=== PATIENT | female | born 1990 | race African-American/Black ===

== ENCOUNTER 2021-06-15 11:30 | Day surgery (SDC) | payer OTHER ==
[2021-06-08 12:55] LABS: ALBUMIN 4.1 G/DL (3.4-5.0); ALBUMIN/GLOBULIN RATIO 0.8 (1.1-1.5); ALKALINE PHOSPHATASE 43 IU/L (46-116); BLOOD UREA NITROGEN 13 MG/DL (7-18); BUN/CREATININE RATIO 17.6 (6.6-38.0); CALCIUM 9.5 MG/DL (8.5-10.1); CHLORIDE 103 MMOL/L (99-107); CREATININE 0.74 MG/DL (0.40-0.90); PRE OP ALT 13 U/L (30-65); PRE OP ANION GAP 13 (8-16); PRE OP AST 24 U/L (10-37); PRE OP BILIRUB, TOTAL 0.2 MG/DL (0.0-1.0); PRE OP GLUCOSE 87 MG/DL (70-104); PRE OP POTASSIUM 3.9 MMOL/L (3.4-5.1); PRE OP SODIUM 139 MMOL/L (135-145); TOTAL CARBON DIOXIDE 22.6 MMOL/L (24-32); TOTAL PROTEIN 9.4 G/DL (6.4-8.2); eGFR > 90 ML/MIN
[2021-06-08 13:02] LABS: HCG SERUM QL NEGATIVE
[2021-06-08 14:36] LABS: BASOPHILS % (AUTO) 0.6 % (0-1); EOSINOPHILS % (AUTO) 0.2 % (0-6); LYMPHOCYTES # (AUTO) 1.2 X10'3 (1.1-4.8); LYMPHOCYTES % (AUTO) 26.8 % (21-51); MEAN CORPUSCULAR HEMOGLOBIN 22.5 PG (27.0-31.0); MEAN CORPUSCULAR HGB CONC 31.4 g/dL (33.0-36.5); MEAN CORPUSCULAR VOLUME 71.8 FL (78-98); MEAN PLATELET VOLUME 8.4 FL (7.4-10.4); MONOCYTES # (AUTO) 0.3 X10'3 (0-0.9); MONOCYTES % (AUTO) 6.6 % (2-12); NEUTROPHILS # (AUTO) 2.8 X10'3 (1.8-7.7); NEUTROPHILS % (AUTO) 65.8 % (42-75); PRE OP HEMATOCRIT 32.4 % (35.0-45.0); PRE OP PLATELET COUNT 360 X10'3 (140-440); RED BLOOD COUNT 4.51 X10'6 (4.20-5.60); RED CELL DISTRIBUTION WIDTH 19.4 % (11.5-14.5)
[2021-06-08 14:41] LABS: PRE OP HEMOGLOBIN 10.2 g/dL (12.0-16.0)
[2021-06-08 15:25] LABS: ANISOCYTOSIS 2+; LARGE PLATELETS FEW; MICROCYTOSIS 1+; PLATELET ESTIMATE NORMAL
[2021-06-08 15:26] LABS: ELLIPTOCYTES FEW
[~2021-06-15] VITALS: Ht 160 cm; Wt 42.0 kg
[2021-06-15] VITALS (9 sets, daily range): BP systolic 105–125; BP diastolic 61–77
[~2021-06-15 11:30] MED LIST: FERR236T3 PO; [UNRECOGNIZED DRUG - CODE] PO; famotidine 20mg tablet PO ONE; ringers solution, lacted 1,000 ML IV SCH
[2021-06-15] MEDS ORDERED: proCHLORperazine 10 MG/2 ml inj IV PRN (13:05)
[2021-06-15] MEDS ORDERED: meperidine/PF 25mg/ml syringe IV PRN ×3 (13:05)
[2021-06-15] MEDS ORDERED: morphine 4 MG/ML inj SYRINge IV PRN (13:05)
[2021-06-15] MEDS ORDERED: ringers solution, lacted 1,000 ML IV SCH (13:05)
[2021-06-15] MEDS ORDERED: morphine 2 MG/ML inj. syringe IV PRN (13:05)
[2021-06-15] MEDS ORDERED: ondansetron/PF 4mg/2ml inj IV PRN (13:05)
[2021-06-15] MEDS ORDERED: BUPIVAcaine 0.5% inj/PF 30 ML ONE (15:04)
[2021-06-15] MEDS ORDERED: LIDOcaine 2% (20mg/ml) 5ml vial ONE (15:11)
[2021-06-15] MEDS ORDERED: midazolam 1 mg/ML 2ml injection ONE (15:11)
[2021-06-15] MEDS ORDERED: fentaNYL/PF 50MCG/1 ML 2ML syringe ONE (15:11)
[2021-06-15] MEDS ORDERED: propofol inj 20 ML IV ONE (15:11)
[2021-06-15] MEDS ORDERED: rocuronium 10mg/ml inj IV ONE (15:51)
[2021-06-15] MEDS ORDERED: meperidine/PF 25mg/ml syringe ONE (15:52)
[2021-06-15] MEDS ORDERED: BUPIVAcaine 0.5% inj/PF 30 ml vial IJ ONE (16:01)
[2021-06-15] MEDS ORDERED: acetaminophen 1,000mg/100ml IV 100 ML IV ONE (16:28)
[2021-06-15] MEDS ORDERED: oxyCODONE/APAP 5-325mg tablet PO PRN ×2 (16:55→20:00)
--- NOTE | 2021-06-15 16:58 | NUR ---
Received from OR via , accompanied by Anesthesiologist DR DECKER and report given by Anesthesiolgist. AWAKENS TO VOICE. VITALS STABLE. DRESSINGS DI. SYBIL PAIN. ABD SOFT.
--- NOTE | 2021-06-15 18:28 | NUR ---
AWAKE AND ORIENTED. VITALS STABLE. DRESSINGS DI. STATES PAIN IMPROVING. HOME WITH HER SPOUSE AT THIS TIME.
== END 2021-06-15 18:28 | disposition home or self-care (01) ==
LOC: PAS 11:30
PROVIDERS: ATTEND Obstetrics & Gynecology
DX: R10.2 Pelvic and perineal pain (principal); N94.6 Dysmenorrhea, unspecified; N92.0 Excessive and frequent menstruation with regular cycle; N80.1 Endometriosis of ovary; N80.3 Endometriosis of pelvic peritoneum; N70.13 Chronic salpingitis and oophoritis; Z88.8 Allergy status to other drugs, medicaments and biological substances; Z91.018 Allergy to other foods; Z79.899 Other long term (current) drug therapy; Z20.822 Contact with and (suspected) exposure to COVID-19; Z82.49 Family history of ischemic heart disease and other diseases of the circulatory system; Z83.6 Family history of other diseases of the respiratory system
CPT/HCPCS: 36415; 58558; 58661; 58662; 80053; 82948; 84703; 85025; 86885; 86900; 86901; J0131; J2001; J2175; J2250; J2704; J3010; J7030; J7120; U0003; U0005; Z7506; Z7508; Z7512; 85008; A4355; A4618; A6250; A6258; A7000

== ENCOUNTER 2021-06-21 13:27 | Inpatient (IN) | payer OTHER ==
[~2021-06-21] VITALS: Ht 162.6 cm; Wt 46.0 kg
[~2021-06-21 13:27] MED LIST changes: -famotidine 20mg tablet PO ONE; -ringers solution, lacted 1,000 ML IV SCH
[2021-06-21] MEDS ORDERED: iohexol 350MG/ML 100ml bottle IV ONE (13:39)
--- NOTE | 2021-06-21 13:50 | NUR ---
arrived to bed 16 for stroke alert, pt returning from CT. Discussed situation with her . He states she is recovering from abdominal surgery (06/15) was texting him normally at 1030. at about 1300 he heard her fall and he went upstairs and found her on the floor, he carried her to car and drove her here. She is not speaking, shivering, right upper and lower extremity are rigid and she is not moving them, not responding to painful stimuli to right. She has gaze preference, is not crossing midline to the right, is not reponding to visual threat. Her jaw is rigid, unable to stick out tounge, but I see no trauma. pt is continent of urine. No seizure hx per , and mother (on phone) awaiting telemed consult.
[2021-06-21 14:11] LABS: BASOPHILS % (AUTO) 0.4 % (0-1); EOSINOPHILS % (AUTO) 0.3 % (0-6); HEMATOCRIT 25.9 % (35.0-45.0); HEMOGLOBIN 8.2 g/dl (12.0-16.0); MEAN CORPUSCULAR HEMOGLOBIN 22.3 PG (27.0-31.0); MEAN CORPUSCULAR HGB CONC 31.6 g/dL (33.0-36.5); MEAN CORPUSCULAR VOLUME 70.7 FL (78-98); MEAN PLATELET VOLUME 7.4 FL (7.4-10.4); MONOCYTES # (AUTO) 0.5 X10'3 (0-0.9); MONOCYTES % (AUTO) 7.3 % (2-12); NEUTROPHILS # (AUTO) 5.5 X10'3 (1.8-7.7); PLATELET COUNT 422 X10'3 (140-440); RED BLOOD COUNT 3.66 X10'6 (4.20-5.60); RED CELL DISTRIBUTION WIDTH 18.7 % (11.5-14.5)
--- NOTE | 2021-06-21 14:20 | NUR ---
Dr. mitchell via telemed examines pt. at bedside to answer questions. Tpa being mixed at bedside, and 2nd iv being attempted by RN. Dr. Roman (surgeon) called and spoke with DR. Rodriguez regarding risks of bleeding, Dr. mitchell explained to the risks of bleeding due to surgery as well as questionable on set time. Pts sister states at 9am she told her she wasnt feeling well. Decision made that risks of bleeding were to great to give Tpa.
[2021-06-21 14:25] LABS: ALANINE AMINOTRANSFERASE 20 U/L (12-78); ALBUMIN 2.8 G/DL (3.4-5.0); ALBUMIN/GLOBULIN RATIO 0.7 (1.1-1.5); ALKALINE PHOSPHATASE 39 IU/L (46-116); ANION GAP 12 (8-16); ASPARTATE AMINO TRANSFERASE 16 U/L (10-37); BILIRUBIN,TOTAL 0.2 MG/DL (0.1-1.0); BLOOD UREA NITROGEN 13 MG/DL (7-18); BUN/CREATININE RATIO 20.6 (6.6-38.0); CALCIUM 7.6 MG/DL (8.5-10.1); CHLORIDE 102 MMOL/L (99-107); CREATININE 0.63 MG/DL (0.40-0.90); GLUCOSE 105 MG/DL (70-104); POTASSIUM 3.6 MMOL/L (3.5-5.1); SODIUM 135 MMOL/L (135-145); TOTAL CARBON DIOXIDE 21.1 MMOL/L (24-32); TOTAL PROTEIN 6.8 G/DL (6.4-8.2); eGFR > 90 ML/MIN
[2021-06-21 14:31] LABS: PARTIAL THROMBOPLASTIN TIME 21 SECONDS (22-32)
[2021-06-21] MEDS ORDERED: levetiracetam inj 1,000 MG in normal saline 100ml IV soln 90 ML IV SCH (14:45)
[2021-06-21 14:46] LABS: ANISOCYTOSIS 2+; LARGE PLATELETS FEW; MICROCYTOSIS 1+; PLATELET ESTIMATE NORMAL
[2021-06-21] MEDS ORDERED: normal saline 1000ml 1,000 ML IVB ONE (15:10)
[2021-06-21 15:22] LABS: COLOR,URINE YELLOW (Yellow); UA COLLECTION TYPE STRAIGHT CATH; URINE AMPHETAMINE SCREEN NEGATIVE (Neg); URINE BARBITUATE SCREEN NEGATIVE (Neg); URINE BENZODIAZEPINES SCREEN NEGATIVE (Neg); URINE CANNABINOID SCREEN NEGATIVE (Neg); URINE COCAINE SCREEN NEGATIVE (Neg); URINE METHADONE SCREEN NEGATIVE (Neg); URINE OPIATE SCREEN NEGATIVE (Neg); URINE PHENCYCLIDINE SCREEN NEGATIVE (Neg)
[2021-06-21 15:23] LABS: CLARITY,URINE CLEAR (Clear); GLUCOSE, URINE NEGATIVE (Neg); KETONES,URINE NEGATIVE (Neg); LEUKOCYTE ESTERASE ,URINE NEGATIVE (Neg); NITRITES, URINE NEGATIVE (Neg); OCCULT BLOOD,URINE TRACE-INTACT (Neg); PH,URINE 6.5 (4.8-8.0); PROTEIN,URINE NEGATIVE (Neg); UROBILINOGEN,URINE 0.2 E.U/dL (0.2-1.0)
[2021-06-21 15:27] LABS: MUCUS STRANDS FEW /LPF (Neg); SQUAMOUS EPITHELIAL CELL,UR FEW /LPF (FEW)
[2021-06-21 15:28] LABS: BACTERIA,URINE FEW /HPF (Neg); RBC,URINE 0-2 /HPF (0-2); WBC,URINE 0-4 /HPF (0-4)
--- NOTE | 2021-06-21 15:45 | NUR ---
Pt is more present, interacting with trying to communicate needs, remains non verbal. She is following commands, right arm with drift, right leg moving well. She has a left gaze preference and still not responding to visual threat. She is able to open her mouth and has right tounge deviation. Awaiting venous study, Dr. Rodriguez aware of symptoms and order put in for MRI, MRV.
[2021-06-21 15:56] LABS: URINE HCG NEGATIVE (NEG)
--- NOTE | 2021-06-21 16:17 | NUR ---
TO MRI VIA [facility]
[2021-06-21] MEDS ORDERED: magnesium 4gm in 100ml NS 100 ML IV PRN (17:05)
[2021-06-21] MEDS ORDERED: bisacodyl 10mg suppository rectal RC PRN (17:05)
[2021-06-21] MEDS ORDERED: acetaminophen 325mg tablet PO PRN (17:05)
[2021-06-21] MEDS ORDERED: potassium Cl 40MEQ/1/2NS 520ml 520 ML IV PRN ×2 (17:05)
[2021-06-21] MEDS ORDERED: mag hydrox/Alum hydrox/simeth 30ml oral suspension PO PRN (17:05)
[2021-06-21] MEDS: normal saline 1000ml 1,000 ML IV SCH (17:05)
[2021-06-21] MEDS: clopidogrel 75mg tablet PO SCH (17:05)
[2021-06-21] MEDS ORDERED: PERFLUTREN PROTEIN-A MICROSPHR (Optison) 0.22 MG/ML 3ML VIAL IV ONE (17:05)
[2021-06-21] MEDS ORDERED: potassium Cl 20 mEq SR tablet PO PRN ×2 (17:05)
[2021-06-21] MEDS ORDERED: magnesium Cl slow-release 64mg tablet PO PRN (17:05)
[2021-06-21] MEDS ORDERED: magnesium 2GM in 50ml NS 50 ML IV PRN (17:05)
[2021-06-21] MEDS ORDERED: magnesium hydroxide 30ml (MOM) UD suspension PO PRN (17:05)
--- NOTE | 2021-06-21 17:15 | NUR ---
BACK FROM MRI VIA WHEELCHAIR
--- NOTE | 2021-06-21 17:25 | NUR ---
Return from MRI/MRV pt was able to stand and ambulate to W/C extremities are moving equal, no drift. She continues to have right facial droop, right side tounge deviation. left side gaze preference with right side not responding to visual threat. No sensory loss. Dr. Rodriguez aware of syptoms, call to SOC to report study complete.
--- NOTE | 2021-06-21 19:23 | NUR ---
NAN STROKE NURSE OBSERVED PT AND STATES, RESPONDED WELL TO KETAVORA. MINIMAL IMPROVEMENT. PT ABLE TO SPEAK AND ANSWER QUESTIONS APPRO
[2021-06-21] MEDS: docusate sod 100mg capsule PO SCH (20:00)
[2021-06-21] MEDS: K and/or MAG REPLACEMENT MC SCH (20:00)
[2021-06-21] MEDS: NORETHINDRONE E ESTRADIOL IRON PO SCH (21:00)
--- NOTE | 2021-06-21 23:34 | NUR ---
Patient in room ED 16. I have received report from KRYSTAL Green and had the opportunity to ask questions and assume patient care.
[2021-06-21] MEDS ORDERED: morphine 4 MG/ML inj SYRINge IV PRN ×2 (23:40→23:42)
[2021-06-22] VITALS (7 sets, daily range): BP systolic 101–124; BP diastolic 62–74
[2021-06-22] MEDS: normal saline 1000ml 1,000 ML IV SCH ×2 (03:05→14:52)
--- NOTE | 2021-06-22 05:57 | NUR ---
Patient refusing labs this AM. Phlebotamists states she will re-time for 0830 to 0900 when visiting.
--- NOTE | 2021-06-22 06:10 | NUR ---
Problems reprioritized. Patient report given, questions answered & plan of care reviewed with KRYSTAL Graves.
[2021-06-22] MEDS: docusate sod 100mg capsule PO SCH ×2 (07:41→21:16)
[2021-06-22] MEDS: clopidogrel 75mg tablet PO SCH (07:41)
[2021-06-22] MEDS: K and/or MAG REPLACEMENT MC SCH ×2 (08:00→20:00)
[2021-06-22 08:25] LABS: BASOPHILS % (AUTO) 0.7 % (0-1); EOSINOPHILS # (AUTO) 0.1 X10'3 (0-0.9); EOSINOPHILS % (AUTO) 1.6 % (0-6); HEMATOCRIT 26.3 % (35.0-45.0); HEMOGLOBIN 8.4 g/dl (12.0-16.0); LYMPHOCYTES # (AUTO) 1.3 X10'3 (1.1-4.8); LYMPHOCYTES % (AUTO) 21.2 % (21-51); MEAN CORPUSCULAR HEMOGLOBIN 22.4 PG (27.0-31.0); MEAN CORPUSCULAR HGB CONC 31.9 g/dL (33.0-36.5); MEAN CORPUSCULAR VOLUME 70.1 FL (78-98); MEAN PLATELET VOLUME 7.7 FL (7.4-10.4); MONOCYTES # (AUTO) 0.5 X10'3 (0-0.9); MONOCYTES % (AUTO) 7.9 % (2-12); NEUTROPHILS # (AUTO) 4.2 X10'3 (1.8-7.7); NEUTROPHILS % (AUTO) 68.6 % (42-75); PLATELET COUNT 428 X10'3 (140-440); RED BLOOD COUNT 3.76 X10'6 (4.20-5.60); RED CELL DISTRIBUTION WIDTH 18.7 % (11.5-14.5); WHITE BLOOD COUNT 6.1 X10'3 (4.5-11.0)
[2021-06-22 08:34] LABS: ALANINE AMINOTRANSFERASE 24 U/L (12-78); ALBUMIN 2.9 G/DL (3.4-5.0); ALBUMIN/GLOBULIN RATIO 0.7 (1.1-1.5); ALKALINE PHOSPHATASE 48 IU/L (46-116); ANION GAP 10 (8-16); ASPARTATE AMINO TRANSFERASE 22 U/L (10-37); BILIRUBIN,TOTAL 0.3 MG/DL (0.1-1.0); BLOOD UREA NITROGEN 8 MG/DL (7-18); BUN/CREATININE RATIO 11.1 (6.6-38.0); CALCIUM 8.2 MG/DL (8.5-10.1); CHLORIDE 108 MMOL/L (99-107); CHOL/HDL RATIO 4.9 (0.00-4.99); CHOLESTEROL 225 MG/DL (0-200); CREATININE 0.72 MG/DL (0.40-0.90); GLUCOSE 91 MG/DL (70-104); HDL CHOLESTEROL 46 MG/DL (35-60); LDL CHOLESTEROL 155 MG/DL (50-100); MAGNESIUM 2.2 MG/DL (1.5-2.4); POTASSIUM 3.9 MMOL/L (3.5-5.1); SODIUM 140 MMOL/L (135-145); TOTAL CARBON DIOXIDE 21.6 MMOL/L (24-32); TOTAL PROTEIN 7.2 G/DL (6.4-8.2); TRIGLYCERIDES 117 MG/DL (20-135); eGFR > 90 ML/MIN
[2021-06-22] MEDS: acetaminophen 325mg tablet PO PRN ×2 (11:32→23:26)
--- NOTE | 2021-06-22 12:02 | NUR ---
Low BMI screen: Current wt not scaled though previous admit 06/15 showed 42kg scaled w/ BMI of 16. Pt w/ recent lysis of adhesion,ablation of endometriosis, left ovarian cystectomy, left salpingo oophorectomy and D and C with hysteroscopy and cystoscopy per EMR. Pt non-verbal, discussed w/ and bedside; this is Pt's baseline wt and she has not had any recent wt loss, usual wt 88-91lb. Pt usually has small appetite and is requesting Ensure, also stated he will try to bring Premier protein shakes if he can. Recommend Ensure Enlive BID BD. Will continue to monitor. Addendum: 06/22/21 at [address] Amended: Links added.
--- NOTE | 2021-06-22 18:36 | NUR ---
Problems reprioritized. Patient report given, questions answered & plan of care reviewed with Sadaf Talavera RN.
--- NOTE | 2021-06-22 18:40 | NUR ---
Patient in room PCU 3012. I have received report from LAKESHA RICE and had the opportunity to ask questions and assume patient care.
[2021-06-22] MEDS: NORETHINDRONE E ESTRADIOL IRON PO SCH (21:16)
[2021-06-23] MEDS: normal saline 1000ml 1,000 ML IV SCH ×3 (01:30→21:15)
[2021-06-23 02:00] VITALS: BP 96/53
[2021-06-23 06:00] VITALS: BP 99/51
[2021-06-23 06:18] LABS: BASOPHILS % (AUTO) 0.7 % (0-1); EOSINOPHILS # (AUTO) 0.1 X10'3 (0-0.9); EOSINOPHILS % (AUTO) 1.7 % (0-6); HEMATOCRIT 25.6 % (35.0-45.0); LYMPHOCYTES # (AUTO) 1.3 X10'3 (1.1-4.8); LYMPHOCYTES % (AUTO) 18.9 % (21-51); MEAN CORPUSCULAR HEMOGLOBIN 22.4 PG (27.0-31.0); MEAN CORPUSCULAR HGB CONC 31.4 g/dL (33.0-36.5); MEAN CORPUSCULAR VOLUME 71.4 FL (78-98); MEAN PLATELET VOLUME 7.8 FL (7.4-10.4); MONOCYTES # (AUTO) 0.5 X10'3 (0-0.9); MONOCYTES % (AUTO) 7.3 % (2-12); NEUTROPHILS % (AUTO) 71.4 % (42-75); PLATELET COUNT 390 X10'3 (140-440); RED BLOOD COUNT 3.58 X10'6 (4.20-5.60); RED CELL DISTRIBUTION WIDTH 18.2 % (11.5-14.5)
--- NOTE | 2021-06-23 06:25 | NUR ---
Problems reprioritized. Patient report given, questions answered & plan of care reviewed with LAKESHA RICE.
[2021-06-23 06:36] LABS: ALANINE AMINOTRANSFERASE 24 U/L (12-78); ALBUMIN 2.8 G/DL (3.4-5.0); ALBUMIN/GLOBULIN RATIO 0.7 (1.1-1.5); ALKALINE PHOSPHATASE 49 IU/L (46-116); ANION GAP 9 (8-16); ASPARTATE AMINO TRANSFERASE 22 U/L (10-37); BILIRUBIN,TOTAL 0.2 MG/DL (0.1-1.0); BLOOD UREA NITROGEN 8 MG/DL (7-18); BUN/CREATININE RATIO 11.6 (6.6-38.0); CHLORIDE 108 MMOL/L (99-107); CREATININE 0.69 MG/DL (0.40-0.90); GLUCOSE 88 MG/DL (70-104); MAGNESIUM 2.3 MG/DL (1.5-2.4); POTASSIUM 3.9 MMOL/L (3.5-5.1); SODIUM 138 MMOL/L (135-145); TOTAL CARBON DIOXIDE 21.1 MMOL/L (24-32); TOTAL PROTEIN 6.8 G/DL (6.4-8.2); eGFR > 90 ML/MIN
[2021-06-23] MEDS: lactose-reduced food (Ensure Enlive) - 237ml bottle PO SCH ×4 (07:30→21:20)
[2021-06-23] MEDS: K and/or MAG REPLACEMENT MC SCH ×2 (08:00→20:00)
[2021-06-23] MEDS: clopidogrel 75mg tablet PO SCH (09:04)
[2021-06-23] MEDS: docusate sod 100mg capsule PO SCH ×2 (09:04→20:00)
[2021-06-23 11:20] VITALS: BP 113/58
[2021-06-23 15:00] VITALS: BP 124/67
[2021-06-23] MEDS: atorvastatin 20mg tablet PO SCH (16:06)
[2021-06-23] MEDS: acetaminophen 325mg tablet PO PRN (16:18)
[2021-06-23 18:00] VITALS: BP 137/72
[2021-06-23 18:10] LABS: RHEUM FACTOR QUAL REFLEX TITER NEGATIVE (Neg)
--- NOTE | 2021-06-23 18:31 | NUR ---
Problems reprioritized. Patient report given, questions answered & plan of care reviewed with KRYSTAL Damon.
--- NOTE | 2021-06-23 18:45 | NUR ---
Pt [id number] playing game with her family, denied any complaints. IV hydration in progress. Call light and bedside table placed within reach. Safety measure in place. Continue to monitor pt.
[2021-06-23] MEDS: NORETHINDRONE E ESTRADIOL IRON PO SCH (21:14)
[2021-06-23 22:00] VITALS: BP 116/58
--- NOTE | 2021-06-24 00:26 | NUR ---
Hourly rounding in progress; pt asleep arousal to stimuli. Pt denied any discomfort. IV fluid infusing well. Call light within reach.
[2021-06-24 02:00] VITALS: BP 106/66
--- NOTE | 2021-06-24 02:30 | NUR ---
Pt ambulating to the bathroom; steady gait noted. Hourly rounding in progress.
[2021-06-24] MEDS: acetaminophen 325mg tablet PO PRN (03:20)
--- NOTE | 2021-06-24 03:22 | NUR ---
Pt reported abdominal pain to her surgical site; po medication given. Will reassess.
--- NOTE | 2021-06-24 06:00 | NUR ---
Pt is sleeping, IV infusing well.
[2021-06-24] MEDS: normal saline 1000ml 1,000 ML IV SCH (06:38)
[2021-06-24 06:44] LABS: HIV ANTIBODY 1&2 RAPID NON-REACTIVE (Neg)
[2021-06-24 06:50] LABS: BASOPHILS % (AUTO) 0.3 % (0-1); EOSINOPHILS # (AUTO) 0.1 X10'3 (0-0.9); EOSINOPHILS % (AUTO) 1.1 % (0-6); HEMATOCRIT 24.7 % (35.0-45.0); HEMOGLOBIN 7.9 g/dl (12.0-16.0); LYMPHOCYTES # (AUTO) 1.5 X10'3 (1.1-4.8); LYMPHOCYTES % (AUTO) 23.5 % (21-51); MEAN CORPUSCULAR HEMOGLOBIN 22.6 PG (27.0-31.0); MEAN CORPUSCULAR HGB CONC 31.9 g/dL (33.0-36.5); MEAN CORPUSCULAR VOLUME 70.7 FL (78-98); MEAN PLATELET VOLUME 7.4 FL (7.4-10.4); MONOCYTES # (AUTO) 0.6 X10'3 (0-0.9); MONOCYTES % (AUTO) 9.1 % (2-12); NEUTROPHILS # (AUTO) 4.2 X10'3 (1.8-7.7); PLATELET COUNT 414 X10'3 (140-440); RED BLOOD COUNT 3.49 X10'6 (4.20-5.60); RED CELL DISTRIBUTION WIDTH 18.4 % (11.5-14.5); WHITE BLOOD COUNT 6.4 X10'3 (4.5-11.0)
[2021-06-24 07:04] LABS: ALANINE AMINOTRANSFERASE 23 U/L (12-78); ALBUMIN 2.7 G/DL (3.4-5.0); ALBUMIN/GLOBULIN RATIO 0.7 (1.1-1.5); ALKALINE PHOSPHATASE 43 IU/L (46-116); ANION GAP 9 (8-16); ASPARTATE AMINO TRANSFERASE 23 U/L (10-37); BILIRUBIN,TOTAL 0.1 MG/DL (0.1-1.0); BLOOD UREA NITROGEN 9 MG/DL (7-18); BUN/CREATININE RATIO 12.3 (6.6-38.0); CALCIUM 7.9 MG/DL (8.5-10.1); CHLORIDE 109 MMOL/L (99-107); CREATININE 0.73 MG/DL (0.40-0.90); GLUCOSE 94 MG/DL (70-104); MAGNESIUM 1.8 MG/DL (1.5-2.4); POTASSIUM 3.9 MMOL/L (3.5-5.1); SODIUM 140 MMOL/L (135-145); TOTAL CARBON DIOXIDE 21.7 MMOL/L (24-32); TOTAL PROTEIN 6.4 G/DL (6.4-8.2); eGFR > 90 ML/MIN
[2021-06-24 07:10] VITALS: BP 104/55
[2021-06-24] MEDS ORDERED: cyanocobalamin 500mcg tablet PO SCH (08:00)
[2021-06-24] MEDS: clopidogrel 75mg tablet PO SCH (09:45)
[2021-06-24] MEDS: atorvastatin 20mg tablet PO SCH (09:46)
[2021-06-24] MEDS: docusate sod 100mg capsule PO SCH (09:46)
[2021-06-24] MEDS ORDERED: CLOP75TA34 PO (12:29)
[2021-06-24] MEDS ORDERED: ATOR40TA PO ×2 (12:29)
[2021-06-26 15:41] LABS: ANTINUCLEAR ANTIBODIES Negative (Negative)
[2021-06-27 12:53] LABS: ANTITHROMBIN ACTIVITY 131 % (75-135); ANTITHROMBIN ANTIGEN 96 % (72-124); PROTEIN S, FREE 98 % (61-136); PROTEIN S, TOTAL 76 % (60-150)
== END 2021-06-24 15:40 | disposition home or self-care (01) | DRG 65 ==
LOC: ER 13:27 → ED HOLD 17:08 → PCU 3S 23:50
PROVIDERS: ADMIT Family Medicine; ATTEND Family Medicine
PROC: B3251ZZ Computerized Tomography (CT Scan) of Bilateral Common Carotid Arteries using Low Osmolar Contrast (ICD-10-PCS; 2021-06-21)
PROC: B32G1ZZ Computerized Tomography (CT Scan) of Bilateral Vertebral Arteries using Low Osmolar Contrast (ICD-10-PCS; 2021-06-21)
PROC: B32R1ZZ Computerized Tomography (CT Scan) of Intracranial Arteries using Low Osmolar Contrast (ICD-10-PCS; 2021-06-21)
PROC: B3281ZZ Computerized Tomography (CT Scan) of Bilateral Internal Carotid Arteries using Low Osmolar Contrast (ICD-10-PCS; 2021-06-21)
PROC: 4A10X4Z Monitoring of Central Nervous Electrical Activity, External Approach (ICD-10-PCS; principal; 2021-06-23)
DX: I63.512 Cerebral infarction due to unspecified occlusion or stenosis of left middle cerebral artery (principal); Q21.1 Atrial septal defect; G93.40 Encephalopathy, unspecified; R47.01 Aphasia; R29.718 NIHSS score 18; R49.1 Aphonia; R56.9 Unspecified convulsions; D50.9 Iron deficiency anemia, unspecified; E78.5 Hyperlipidemia, unspecified; Z20.822 Contact with and (suspected) exposure to COVID-19; Z88.6 Allergy status to analgesic agent; Z91.018 Allergy to other foods; Z79.02 Long term (current) use of antithrombotics/antiplatelets
CPT/HCPCS: 36415; 70450; 70496; 70498; 70544; 70551; 71045; 72195; 74176; 80053; 80061; 80305; 81001; 81025; 81479; 82140; 82607; 82948; 83735; 83891; 83894; 83898; 84443; 84484; 85008; 85025; 85240; 85300; 85301; 85303; 85305; 85306; 85610; 85730; 86038; 86146; 86147; 86430; 86592; 86703; 86885; 86900; 86901; 87081; 87635; 92508; 92616; 93005; 93306; 93970; 95816; 96365; 97110; 97116; 97162; 99291; C9803; G0378; J1953; J2997; J7030; Q9967

== ENCOUNTER 2021-06-26 13:32 | Inpatient (IN) | payer OTHER ==
[~2021-06-26] VITALS: Ht 160 cm; Wt 40.9 kg
[~2021-06-26 13:32] MED LIST changes: +ATOR40TA PO; +CLOP75TA34 PO; -FERR236T3 PO; -[UNRECOGNIZED DRUG - CODE] PO
[2021-06-26 15:35] LABS: HEMATOCRIT 30.9 % (35.0-45.0); HEMOGLOBIN 9.7 g/dl (12.0-16.0); MONOCYTES # (AUTO) 0.5 X10'3 (0-0.9); WHITE BLOOD COUNT 6.2 X10'3 (4.5-11.0)
[2021-06-26 15:36] LABS: URINE HCG NEGATIVE (NEG)
[2021-06-26 15:36] LABS: BASOPHILS % (AUTO) 0.7 % (0-1); EOSINOPHILS # (AUTO) 0.1 X10'3 (0-0.9); EOSINOPHILS % (AUTO) 0.8 % (0-6); LYMPHOCYTES # (AUTO) 1.6 X10'3 (1.1-4.8); MEAN CORPUSCULAR HEMOGLOBIN 22.3 PG (27.0-31.0); MEAN CORPUSCULAR HGB CONC 31.4 g/dL (33.0-36.5); MEAN CORPUSCULAR VOLUME 70.9 FL (78-98); MEAN PLATELET VOLUME 7.5 FL (7.4-10.4); MONOCYTES % (AUTO) 8.1 % (2-12); NEUTROPHILS # (AUTO) 4.1 X10'3 (1.8-7.7); NEUTROPHILS % (AUTO) 65.4 % (42-75); PLATELET COUNT 620 X10'3 (140-440); RED BLOOD COUNT 4.36 X10'6 (4.20-5.60); RED CELL DISTRIBUTION WIDTH 18.4 % (11.5-14.5)
[2021-06-26] MEDS ORDERED: iohexol 350MG/ML 100ml bottle IV ONE (15:46)
[2021-06-26 15:48] LABS: ALANINE AMINOTRANSFERASE 30 U/L (12-78); ALBUMIN 3.8 G/DL (3.4-5.0); ALBUMIN/GLOBULIN RATIO 0.7 (1.1-1.5); ALKALINE PHOSPHATASE 57 IU/L (46-116); ANION GAP 13 (8-16); ASPARTATE AMINO TRANSFERASE 37 U/L (10-37); BILIRUBIN,TOTAL 0.2 MG/DL (0.1-1.0); BLOOD UREA NITROGEN 14 MG/DL (7-18); BUN/CREATININE RATIO 18.2 (6.6-38.0); CALCIUM 8.9 MG/DL (8.5-10.1); CHLORIDE 103 MMOL/L (99-107); CREATININE 0.77 MG/DL (0.40-0.90); GLUCOSE 97 MG/DL (70-104); POTASSIUM 3.7 MMOL/L (3.5-5.1); SODIUM 139 MMOL/L (135-145); TOTAL CARBON DIOXIDE 23.5 MMOL/L (24-32); TOTAL PROTEIN 8.9 G/DL (6.4-8.2); eGFR > 90 ML/MIN
[2021-06-26 16:17] LABS: PLATELET ESTIMATE INCREASED
[2021-06-26 16:18] LABS: ANISOCYTOSIS 2+; MICROCYTOSIS 1+
[2021-06-26 16:19] LABS: HYPOCHROMASIA 1+
[2021-06-26 17:30] LABS: CLARITY,URINE CLEAR (Clear); COLOR,URINE YELLOW (Yellow); UA COLLECTION TYPE VOIDED
[2021-06-26 17:31] LABS: GLUCOSE, URINE NEGATIVE (Neg); KETONES,URINE NEGATIVE (Neg); LEUKOCYTE ESTERASE ,URINE NEGATIVE (Neg); NITRITES, URINE NEGATIVE (Neg); OCCULT BLOOD,URINE LARGE (Neg); PROTEIN,URINE Negative (Neg); UROBILINOGEN,URINE 0.2 E.U/dL (0.2-1.0)
[2021-06-26 17:33] LABS: BACTERIA,URINE FEW /HPF (Neg); RBC,URINE NONE SEEN /HPF (0-2); SQUAMOUS EPITHELIAL CELL,UR FEW /LPF (FEW); WBC,URINE 0-4 /HPF (0-4)
[2021-06-26] MEDS ORDERED: ATOR40TA7 PO (19:38)
[2021-06-26] MEDS ORDERED: magnesium 2GM in 50ml NS 50 ML IV PRN (20:20)
[2021-06-26] MEDS ORDERED: magnesium Cl slow-release 64mg tablet PO PRN (20:20)
[2021-06-26] MEDS ORDERED: metoclopramide 5 mg/ml inj IV PRN (20:20)
[2021-06-26] MEDS ORDERED: potassium Cl 40MEQ/1/2NS 520ml 520 ML IV PRN ×2 (20:20)
[2021-06-26] MEDS ORDERED: magnesium 4gm in 100ml NS 100 ML IV PRN (20:20)
[2021-06-26] MEDS ORDERED: potassium Cl 20 mEq SR tablet PO PRN ×2 (20:20)
[2021-06-26] MEDS ORDERED: ondansetron/PF 4mg/2ml inj IV PRN (20:20)
[2021-06-26] MEDS: acetaminophen 325mg tablet PO PRN (20:57)
--- NOTE | 2021-06-26 22:58 | NUR ---
PT ROOMED IN BED 1. ASSUMED CARE OF PT. SPOUSE AT BEDSIDE. PT SITTING UP EATING YOGURT. STATES SHE FEELS "SUPER GOOD".
[2021-06-27 01:52] LABS: BASOPHILS # (AUTO) 0.1 X10'3 (0-0.2); BASOPHILS % (AUTO) 0.9 % (0-1); EOSINOPHILS # (AUTO) 0.1 X10'3 (0-0.9); EOSINOPHILS % (AUTO) 1.1 % (0-6); HEMATOCRIT 27.2 % (35.0-45.0); HEMOGLOBIN 8.5 g/dl (12.0-16.0); LYMPHOCYTES # (AUTO) 1.7 X10'3 (1.1-4.8); LYMPHOCYTES % (AUTO) 22.5 % (21-51); MEAN CORPUSCULAR HEMOGLOBIN 22.2 PG (27.0-31.0); MEAN CORPUSCULAR HGB CONC 31.3 g/dL (33.0-36.5); MEAN CORPUSCULAR VOLUME 70.9 FL (78-98); MEAN PLATELET VOLUME 7.4 FL (7.4-10.4); MONOCYTES # (AUTO) 0.7 X10'3 (0-0.9); MONOCYTES % (AUTO) 9.2 % (2-12); NEUTROPHILS # (AUTO) 4.9 X10'3 (1.8-7.7); NEUTROPHILS % (AUTO) 66.3 % (42-75); PLATELET COUNT 490 X10'3 (140-440); RED BLOOD COUNT 3.83 X10'6 (4.20-5.60); RED CELL DISTRIBUTION WIDTH 18.8 % (11.5-14.5); WHITE BLOOD COUNT 7.4 X10'3 (4.5-11.0)
[2021-06-27 01:58] LABS: ALBUMIN 3.1 G/DL (3.4-5.0); ANION GAP 13 (8-16); BLOOD UREA NITROGEN 13 MG/DL (7-18); BUN/CREATININE RATIO 17.6 (6.6-38.0); CALCIUM 8.5 MG/DL (8.5-10.1); CHLORIDE 103 MMOL/L (99-107); CREATININE 0.74 MG/DL (0.40-0.90); GLUCOSE 89 MG/DL (70-104); MAGNESIUM 2.1 MG/DL (1.5-2.4); SODIUM 141 MMOL/L (135-145); TOTAL CARBON DIOXIDE 25.3 MMOL/L (24-32); eGFR > 90 ML/MIN
[2021-06-27 02:33] LABS: % IRON SATURATION 3 % (11-46); IRON 15 UG/DL (49-151); TOTAL IRON BINDING CAPACITY 473 UG/DL (259-388)
[2021-06-27] MEDS ORDERED: CLOP75TA15 PO (07:45)
[2021-06-27] MEDS: K and/or MAG REPLACEMENT MC SCH ×2 (08:00→20:00)
[2021-06-27] MEDS: clopidogrel 75mg tablet PO SCH ×3 (09:34→11:00)
[2021-06-27] MEDS: acetaminophen 325mg tablet PO PRN ×2 (09:35→20:27)
[2021-06-27 15:00] VITALS: BP 111/73
[2021-06-27 18:00] VITALS: BP 111/66
--- NOTE | 2021-06-27 18:30 | NUR ---
Patient in room PCU 3020. I have received report from KODAK RN and had the opportunity to ask questions and assume patient care.
[2021-06-27 19:42] LABS: HEMATOCRIT 30.6 % (35.0-45.0); HEMOGLOBIN 9.6 g/dl (12.0-16.0); MEAN CORPUSCULAR HGB CONC 31.3 g/dL (33.0-36.5); MEAN CORPUSCULAR VOLUME 70.5 FL (78-98); MEAN PLATELET VOLUME 7.5 FL (7.4-10.4); PLATELET COUNT 575 X10'3 (140-440); RED BLOOD COUNT 4.34 X10'6 (4.20-5.60); RED CELL DISTRIBUTION WIDTH 18.6 % (11.5-14.5); WHITE BLOOD COUNT 9.1 X10'3 (4.5-11.0)
[2021-06-27] MEDS ORDERED: clopidogrel 75mg tablet PO ONE (19:45)
[2021-06-27] MEDS ORDERED: atorvastatin 20mg tablet PO SCH (21:00)
[2021-06-27 22:00] VITALS: BP 108/67
[2021-06-27] MEDS: apixaban 5mg tablet PO SCH (22:26)
[2021-06-28 01:51] LABS: MEAN PLATELET VOLUME 7.7 FL (7.4-10.4)
[2021-06-28 01:52] LABS: HEMATOCRIT 28.2 % (35.0-45.0); MEAN CORPUSCULAR HEMOGLOBIN 22.4 PG (27.0-31.0); MEAN CORPUSCULAR HGB CONC 31.9 g/dL (33.0-36.5); MEAN CORPUSCULAR VOLUME 70.3 FL (78-98); PLATELET COUNT 528 X10'3 (140-440); RED BLOOD COUNT 4.01 X10'6 (4.20-5.60); RED CELL DISTRIBUTION WIDTH 18.9 % (11.5-14.5); WHITE BLOOD COUNT 9.8 X10'3 (4.5-11.0)
[2021-06-28 02:00] VITALS: BP 103/66
--- NOTE | 2021-06-28 06:20 | NUR ---
Problems reprioritized. Patient report given, questions answered & plan of care reviewed with PAT RN.
[2021-06-28 06:55] VITALS: BP 110/66
[2021-06-28] MEDS: clopidogrel 75mg tablet PO SCH (08:00)
[2021-06-28] MEDS: K and/or MAG REPLACEMENT MC SCH (08:00)
[2021-06-28 08:16] LABS: BASOPHILS # (AUTO) 0.1 X10'3 (0-0.2); EOSINOPHILS # (AUTO) 0.1 X10'3 (0-0.9); HEMATOCRIT 31.2 % (35.0-45.0); HEMOGLOBIN 9.7 g/dl (12.0-16.0); LYMPHOCYTES # (AUTO) 1.2 X10'3 (1.1-4.8); LYMPHOCYTES % (AUTO) 18.2 % (21-51); MEAN CORPUSCULAR HEMOGLOBIN 21.9 PG (27.0-31.0); MEAN CORPUSCULAR VOLUME 70.7 FL (78-98); MEAN PLATELET VOLUME 7.6 FL (7.4-10.4); MONOCYTES # (AUTO) 0.5 X10'3 (0-0.9); MONOCYTES % (AUTO) 7.8 % (2-12); NEUTROPHILS # (AUTO) 4.6 X10'3 (1.8-7.7); PLATELET COUNT 520 X10'3 (140-440); RED BLOOD COUNT 4.41 X10'6 (4.20-5.60); RED CELL DISTRIBUTION WIDTH 18.8 % (11.5-14.5); WHITE BLOOD COUNT 6.4 X10'3 (4.5-11.0)
[2021-06-28 08:29] LABS: ALBUMIN 3.6 G/DL (3.4-5.0); ANION GAP 11 (8-16); BLOOD UREA NITROGEN 13 MG/DL (7-18); BUN/CREATININE RATIO 17.6 (6.6-38.0); CALCIUM 9.2 MG/DL (8.5-10.1); CHLORIDE 103 MMOL/L (99-107); CREATININE 0.74 MG/DL (0.40-0.90); GLUCOSE 91 MG/DL (70-104); MAGNESIUM 2.1 MG/DL (1.5-2.4); POTASSIUM 3.9 MMOL/L (3.5-5.1); SODIUM 139 MMOL/L (135-145); TOTAL CARBON DIOXIDE 25.3 MMOL/L (24-32); eGFR > 90 ML/MIN
[2021-06-28 09:22] LABS: ANISOCYTOSIS 2+; LARGE PLATELETS FEW; MICROCYTOSIS 1+; PLATELET ESTIMATE INCREASED
[2021-06-28] MEDS ORDERED: APIX5TAB3 PO (09:53)
[2021-06-28] MEDS: apixaban 5mg tablet PO SCH (09:59)
== END 2021-06-28 10:53 | disposition home or self-care (01) | DRG 65 ==
LOC: ER 13:34 → ED HOLD 20:20 → UNDOADMIN 20:20 → PCU 3S 06-27 14:50
PROVIDERS: ADMIT Internal Medicine; ATTEND Family Medicine
PROC: B3251ZZ Computerized Tomography (CT Scan) of Bilateral Common Carotid Arteries using Low Osmolar Contrast (ICD-10-PCS; principal; 2021-06-26)
PROC: B32G1ZZ Computerized Tomography (CT Scan) of Bilateral Vertebral Arteries using Low Osmolar Contrast (ICD-10-PCS; 2021-06-26)
PROC: B32R1ZZ Computerized Tomography (CT Scan) of Intracranial Arteries using Low Osmolar Contrast (ICD-10-PCS; 2021-06-26)
PROC: B3281ZZ Computerized Tomography (CT Scan) of Bilateral Internal Carotid Arteries using Low Osmolar Contrast (ICD-10-PCS; 2021-06-26)
DX: I63.312 Cerebral infarction due to thrombosis of left middle cerebral artery (principal); D68.59 Other primary thrombophilia; R11.0 Nausea; K14.8 Other diseases of tongue; D64.9 Anemia, unspecified; I65.22 Occlusion and stenosis of left carotid artery; E78.5 Hyperlipidemia, unspecified; E88.09 Other disorders of plasma-protein metabolism, not elsewhere classified; I69.398 Other sequelae of cerebral infarction; Z86.16 Personal history of COVID-19; Z88.6 Allergy status to analgesic agent; Z91.018 Allergy to other foods; Z79.899 Other long term (current) drug therapy; Z79.02 Long term (current) use of antithrombotics/antiplatelets; Z90.79 Acquired absence of other genital organ(s)
CPT/HCPCS: 36415; 70450; 70470; 70496; 70498; 70551; 80048; 80053; 81001; 81025; 83540; 83550; 83735; 85008; 85025; 85027; 99285; G0378; Q9967